=== PATIENT | female | born 1950 | race Caucasian/White ===

== ENCOUNTER → 2018-09-10 | Outpatient (CLI) | payer OTHER ==
[~2018-09-10] MED LIST: ASPI-650 PO; BISA10SU54 PR; CELE200C PO; DIPH25CA61 PO; DOCU-131 PO; HYDR-3307 PO; LEVO75TA PO; MAGN400O7 PO; ONDA4TAB7 PO; OXYC5TAB3 PO; PROM12.553 PR; SENN-31 PO; TRAM-47 PO; TRAM50TA2 PO
== END | disposition home or self-care (01) ==
LOC: CFH 09:02
PROVIDERS: ATTEND Family Medicine
DX: Z12.31 Encounter for screening mammogram for malignant neoplasm of breast (principal); Z88.8 Allergy status to other drugs, medicaments and biological substances
CPT/HCPCS: 77067

== ENCOUNTER 2018-09-24 12:21 | Outpatient (CLI) | payer OTHER | END 2018-09-24 23:59 | disposition home or self-care (01) | LOC: CFH 12:21 | PROVIDERS: ATTEND Family Medicine | DX: R92.2 Inconclusive mammogram (principal) | CPT/HCPCS: 77066; G0279 ==